=== PATIENT | male | born 1960 | race Caucasian/White ===

== ENCOUNTER 2022-11-12 08:48 | Emergency (ER) | payer MEDICARE, OTHER ==
[~2022-11-12] VITALS: Ht 188 cm; Wt 124.7 kg
[2022-11-12 09:12] VITALS: BP 130/90
== END 2022-11-12 11:05 | disposition home or self-care (01) ==
LOC: ER 08:48
DX: E86.0 Dehydration (principal)
CPT/HCPCS: 87081; 87430; 99283; J1100

== ENCOUNTER → 2023-02-06 | Outpatient (CLI) | payer MEDICARE, OTHER ==
[2023-02-06 18:10] LABS: Microalb/Creat Ratio UR, Rand 23.571 mg/g (0.000-30.000); Microalbumin, Random Urine 39.6 mg/L (0.000-20.000)
== END | disposition home or self-care (01) ==
LOC: LAB SHORT 13:45 → LAB 13:45
PROVIDERS: Family Medicine
DX: E13.42 Other specified diabetes mellitus with diabetic polyneuropathy (principal)
CPT/HCPCS: 82043; 82570